=== PATIENT | female | born 1975 | race American Indian/Alaskan Native ===

== ENCOUNTER 2017-02-17 12:04 | Outpatient (CLI) | payer OTHER ==
[2017-02-17] MEDS ORDERED: PROVENTIL IH ONE (12:24)
== END 2017-02-17 12:05 | disposition home or self-care (01) ==
LOC: PF 12:04
PROVIDERS: ATTEND Internal Medicine
DX: I10 Essential (primary) hypertension (principal); R09.89 Other specified symptoms and signs involving the circulatory and respiratory systems; L93.0 Discoid lupus erythematosus; R60.9 Edema, unspecified
CPT/HCPCS: 94729